=== PATIENT | male | born 1985 | race Caucasian/White ===

== ENCOUNTER 2019-06-12 10:57 | Emergency (ER) | payer MEDICAID, SELFPAY ==
[2019-06-12 10:58] VITALS: BP 116/65; PULSE 88; RESP 16; TEMP 36.4; O2SAT 99; BMI 21.1
--- NOTE | 2019-06-12 11:08 | RAD_ITS ---
STUDY: X-RAY - RIGHT ELBOW REASON FOR EXAM: Male, 34 years old. Pain and swelling of the posterior elbow for the past 2 days. TECHNIQUE: 3 view(s) of the elbow. COMPARISON: None. FINDINGS: Normal visualized humerus, radius and ulna. Normal radiocapitellar and ulnotrochlear articulations. There is soft tissue swelling of the posterior aspect of the elbow. There is no demonstrated fracture. RAD/Elbow min 3 Views IMPRESSION: Soft tissue swelling posteriorly. No demonstrated acute osseous changes. Electronically Signed: Ermias Bush MD at 11:44 EDT Tel , Service support ,
--- NOTE | 2019-06-12 11:09 | ED.DCSUM_ITS ---
- ER Visit Summary Date of Service: 06/12/19 Chief Complaint: Right elbow swelling History of Present Illness: The patient is a 34 M states for the past 2 to 3 days he has had posterior right elbow swelling. Patient states that he is from [place] and currently in a homeless intermediate. His significant other states that he had a lowery on the posterior elbow and she popped it and now has swelling. He denies any fevers or redness. No recent street drug injections. He notes full range of motion. He denies any distal symptoms. He is right- handed. He states that 6 months ago he fell on concrete injuring the elbow. Physical Examination: Afebrile vital signs are stable Gen: Well-nourished well-developed Head: Normocephalic atraumatic Eyes: Perrl EOMI ENT: TMs clear no rhinorrhea moist mucous membranes Neck: Supple no lymphadenopathy no JVD nontender CVS: Regular rate rhythm no murmurs normal S1-S2 Respiratory: No distress clear to auscultation bilaterally chest nontender Abdomen: Soft nontender nondistended normal bowel sounds no masses Back: Nontender Extremity: There is swelling of the posterior right elbow bursa. There is no significant overlying erythema. There are numerous healed pustular lesions on the forearm and posterior elbow area. No lymphangitic streaking. Full range of motion. Skin: Normal color no rash Neuro: alert orientated ?3 CN II-XII intact normal strength sensation reflexes gait cerebellar Psych: Normal affect normal mood Test Results: Films were obtained. No joint effusion. No fracture or bone spurs noted. No air. Swelling over the posterior elbow Emergency Department Course and Treatment: This appears to be a bursitis. Etiology undefined. Given that there is was a pustule infectious could be an etiology though examination at this time demonstrates no erythema or increased warmth. We will place an Sergey wrap. I will start him on anti-inflammatories and Bactrim. Follow-up with primary care Impression: Line 1. Right elbow bursitis This note was generated with [employer] dictation software. It may contain incorrect words, spelling, and punctuation that were not noted in review of the chart prior to signing ED Disposition - Plan for ED Patient: Disposition: Home or Assisted Living Instructions: Bursitis, Elbow ([place]) Prescriptions: Smz/Tmp Ds [Bactrim Ds] 1 tab PO BID #20 tab Prescription Printed Naproxen [Naprosyn] 500 mg PO BID #20 tab Prescription Printed Referrals: Sixto Yates MD [STAFF PHYSICIAN] - 1 Week if not improving
== END 2019-06-12 12:14 | disposition home or self-care (01) ==
PROVIDERS: Emergency Provider Emergency Medicine
DX: M70.31 Other bursitis of elbow, right elbow (principal); Y93.9 Activity, unspecified; Z59.0 Homelessness; Z72.0 Tobacco use
CPT/HCPCS: 73080; 99282